=== PATIENT | female | born 1970 | race Caucasian/White ===

== ENCOUNTER → 2018-02-24 14:33 | Emergency (ER) | payer BC ==
[~2018-02-24 14:33] MED LIST: HYDROmorphone INJ* 2 MG/ML CARPUJECT SYRINGE IV SLOW PU ONE; Iohexol 300* (CONTRAST) 10 ML SDV IV ONE; NS 0.9% 1000 ML* 1,000 ML IV ONE; Ondansetron ODT TAB* 4 MG ONE; PROCHLORPERAZINE INJ 5 MG/ML 2 ML VIAL IV PRN; traMADol TAB* 50 MG PO ONE
[2018-02-24 16:38] LABS: ABS Basophils 0 10^3/ul (0-0.2); ABS Eosinophils 0.1 10^3/ul (0-0.6); ABS Lymphocytes 1.7 10^3/ul (1.0-4.8); ABS Monocytes 0.4 10^3/ul (0-0.8); ABS Neutrophils 3.1 10^3/ul (1.5-7.7); ABS Nucleated RBC 0 10^3/ul; Eosinophil % 1.3 % (0-6); Hematocrit 39 % (35-47); Hemoglobin 13.6 g/dl (12.0-16.0); Lymphocyte % 32.1 % (25-47); Mean Corpuscular HGB Conc 35 g/dl (31-36); Mean Corpuscular Hemoglobin 32 pg (27-31); Mean Corpuscular Volume 91 fL (80-97); Mean Platelet Volume 8.1 um3 (7.4-10.4); Nucleated Red Blood Cells % 0; Platelet Count 295 10^3/ul (150-450); Red Blood Count 4.27 10^6/ul (4.00-5.40); Red Cell Distribution Width 14 % (10.5-15); White Blood Count 5.3 10^3/ul (3.5-10.8)
[2018-02-24 16:51] LABS: EGFR Non-African American 96.9 (>60)
[2018-02-24 16:59] LABS: Urine Appearance Clear; Urine Blood Negative (Negative); Urine Color Straw; Urine Ketones Negative (Negative); Urine Protein Negative (Negative); Urine Specific Gravity 1.008 (1.010-1.030); Urine Urobilinogen Negative (Negative)
--- NOTE | 2018-02-24 21:27 | RAD ---
CLINICAL HISTORY: Left lower quadrant pain COMPARISON: CT abdomen pelvis October 13, 2010 TECHNIQUE: Contrast enhanced CT examination of the abdomen and pelvis from the lung bases through the initial tuberosities. The patient received 75 mL Omnipaque 300 intravenously prior to imaging.The patient received oral contrast as well prior to imaging. FINDINGS: VISUALIZED LUNG BASES: The visualized lung bases are grossly clear. There is no pleural effusion. ABDOMEN AND PELVIS: In the right lobe of the liver there is a fluid density millimeter focus most compatible with a benign cyst. Smaller subcentimeter hypoattenuating foci are seen in the liver similar in appearance to the previous CT examination. The liver is otherwise homogenous in attenuation and the surface is smooth. The spleen, pancreas and adrenal glands are grossly normal in appearance. The gallbladder is normal. The kidneys are normal in appearance without focal mass, calcification or signs of hydronephrosis. There are contrast has progressed only as far as the proximal small bowel which limits evaluation of the more distal small bowel and colon. The small bowel is not dilated. The normal appendix is identified in the right lower quadrant measuring 5 mm in diameter (coronal image 35 and axial image 59). There are no diverticula or obvious signs of inflammatory change of the colon but evaluation is limited oral contrast. There is no gross retroperitoneal or mesenteric lymphadenopathy. The retroverted uterus is mildly heterogeneous in attenuation. At the right adnexa there is a 2.1 cm fluid density structure that could represent a dominant follicle in a woman of reproductive age. There is trace free fluid in the cul-de-sac. The abdominal aorta and iliac arteries are normal in course and diameter. Degenerative changes include multilevel loss of intervertebral disc height involving the lower thoracic and lumbar spine.There are no sinister bone lesions. IMPRESSION: 1. No definite focal inflammatory change of the gastrointestinal tract no evaluation is limited by the fact that oral contrast has progressed only as far as the proximal small bowel. 2. Heterogeneous uterus, trace free fluid in the cul-de-sac and possible 2.1 cm low-attenuation focus at the expected location of the right ovary. If clinically warranted superior characterization of the reproductive organs can be made with pelvic ultrasound.
--- NOTE | 2018-02-24 21:56 | ED ---
Alexi Brannon Rebecca, scribed for Isiah Ureña MD on 02/24/18 at 1657 . Abdominal Pain/Female - HPI Summary HPI Summary: Pt is a 47 y/o F who presents to ED c/o abdominal pain since Tuesday (3 days ago ). Pain is located diffusely throughout the abdomen with constant tightness and intermittent sharp sensations. States that she is unable to find a pattern to when her pain worsens. On triage, pain is mild ranked 2/10, though waxes and wanes in intensity, much worse this morning. She has tried treating symptoms with Tums, Tylenol and GERD medications without relief. Sx aggravated by palpation, alleviated by nothing. Additionally c/o nausea and lightheadedness. Additionally notes what she suspects may be an insect bite to her left thumb. Reports that pain has been severe enough to cause her difficulty sleeping. - History of Current Complaint Chief Complaint: EDAbdPain Stated Complaint: ABD PAIN Time Seen by Provider: 02/24/18 15:46 Hx Obtained From: Patient Onset/Duration: Still Present Timing: Constant Severity Currently: Mild Pain Intensity: 2 Pain Scale Used: 0-10 Numeric Location: Diffuse Aggravating Factor(s): Other: - Palpation Alleviating Factor(s): Nothing Associated Signs and Symptoms: Positive: Nausea, Other: - Lightheadedness Allergies/Adverse Reactions: Allergies Allergy/AdvReac Type Severity Reaction Status Date / Time No Known Allergies Allergy Verified 02/24/18 14:39 PMH/Surg Hx/FS Hx/Imm Hx Endocrine/Hematology History: Denies: Hx Diabetes Cardiovascular History: Denies: Hx Coronary Artery Disease, Hx Hypertension Neurological History: Denies: Other Neuro Impairments/Disorders - Cancer History Hx Chemotherapy: No Hx Radiation Therapy: No Infectious Disease History: No Infectious Disease History: Denies: Traveled Outside the [place] in Last 30 Days - Family History Known Family History: Positive: Hypertension - Mother, Other - Dementia (father) , colon CA (grandmother) - Social History Alcohol Use: Occasionally Substance Use Type: Reports: None Smoking Status (MU): Never Smoked Tobacco Review of Systems Positive: Abdominal Pain, Nausea Neurological: Other - Lightheadedness All Other Systems Reviewed And Are Negative: Yes Physical Exam - Summary Physical Exam Summary: Appearance: The patient is well-nourished in no acute distress and in no acute pain. Skin: The skin is warm and dry and skin color reflects adequate perfusion. HEENT: The head is normocephalic and atraumatic. The pupils are equal and reactive. The conjunctivae are clear and without drainage. Nares are patent and without drainage. Mouth reveals moist mucous membranes and the throat is without erythema and exudate. The external ears are intact. The ear canals are patent and without drainage. The tympanic membranes are intact. Neck: The neck is supple with full range of motion and non-tender. There are no carotid bruits. There is no neck vein distension. Respiratory: Chest is non-tender. Lungs are clear to auscultation and breath sounds are symmetrical and equal. Cardiovascular: Heart is regular rate and rhythm. There is no murmur or rub auscultated. There is no peripheral edema and pulses are symmetrical and equal. Abdomen: The abdomen is soft. Left periumbilical tenderness and LLQ tenderness. There are normal bowel sounds heard in all four quadrants and there is no organomegaly palpated. Musculoskeletal: There is no back tenderness noted. Extremities are non-tender with full range of motion. There is good capillary refill. There is no peripheral edema or calf tenderness elicited. Neurological: Patient is alert and oriented to person, place and time. The patient has symmetrical motor strength in all four extremities. Cranial nerves are grossly intact. Deep tendon reflexes are symmetrical and equal in all four extremities. Psychiatric: The patient has an appropriate affect and does not exhibit any anxiety or depression. Triage Information Reviewed: Yes Vital Signs On Initial Exam: Initial Vitals Temp Pulse Resp BP Pulse Ox 97.7 F 87 14 144/95 99 02/24/18 14:37 02/24/18 14:37 02/24/18 14:37 02/24/18 14:37 02/24/18 14:37 Vital Signs Reviewed: Yes Diagnostics - Vital Signs Vital Signs Temp Pulse Resp BP Pulse Ox 02/24/18 14:37 97.7 F 87 14 144/95 99 - Laboratory Lab Results: Lab Results 02/24/18 02/24/18 02/24/18 Range/Units 16:13 16:13 16:13 WBC 5.3 (3.5-10.8) 10^3/ul RBC 4.27 (4.00-5.40) 10^6/ul Hgb 13.6 (12.0-16.0) g/dl Hct 39 (35-47) % MCV 91 (80-97) fL MCH 32 H (27-31) pg MCHC 35 (31-36) g/dl RDW 14 (10.5-15) % Plt Count 295 (150-450) 10^3/ul MPV 8.1 (7.4-10.4) um3 Neut % (Auto) 58.4 (38-83) % Lymph % (Auto) 32.1 (25-47) % [place] % (Auto) 7.7 H (0-7) % Eos % (Auto) 1.3 (0-6) % Baso % (Auto) 0.5 (0-2) % Absolute Neuts (auto) 3.1 (1.5-7.7) 10^3/ul Absolute Lymphs (auto) 1.7 (1.0-4.8) 10^3/ul Absolute Monos (auto) 0.4 (0-0.8) 10^3/ul Absolute Eos (auto) 0.1 (0-0.6) 10^3/ul Absolute Basos (auto) 0 (0-0.2) 10^3/ul Absolute Nucleated RBC 0 10^3/ul Nucleated RBC % 0 Sodium 139 (135-145) mmol/L Potassium 3.3 L (3.5-5.0) mmol/L Chloride 104 (101-111) mmol/L Carbon Dioxide 26 (22-32) mmol/L Anion Gap 9 (2-11) mmol/L BUN 10 (6-24) mg/dL Creatinine 0.65 (0.51-0.95) mg/dL Est GFR ( Amer) 117.2 (>60) Est GFR (Non-Af Amer) 96.9 (>60) BUN/Creatinine Ratio 15.4 (8-20) Glucose 90 (70-100) mg/dL Lactic Acid 0.6 (0.5-2.0) mmol/L Calcium 9.2 (8.6-10.3) mg/dL Total Bilirubin 0.40 (0.2-1.0) mg/dL AST 15 (13-39) U/L ALT 15 (7-52) U/L Alkaline Phosphatase 40 (34-104) U/L C-Reactive Protein 18.54 H (<8.01) mg/L Total Protein 7.1 (6.4-8.9) g/dL Albumin 4.5 (3.2-5.2) g/dL Globulin 2.6 (2-4) g/dL Albumin/Globulin Ratio 1.7 (1-3) Lipase 49 (11.0-82.0) U/L Result Diagrams: 02/24/18 16:13 02/24/18 16:13 Lab Statement: Any lab studies that have been ordered have been reviewed, and results considered in the medical decision making process. - CT CT Abd/Pel CT Interpretation Completed By: Radiologist - 1. No definite focal inflammatory change of the gastrointestinal tract no evaluation is limited by the fact that oral contrast has progressed only as far as the proximal small bowel. 2. Heterogeneous uterus, trace free fluid in the cul-de-sac and possible 2.1 cm low-attenuation focus at the expected location of the right ovary. If clinically warranted superior characterization of the reproductive organs can be made with pelvic ultrasound. ED physician reviewed this report. Re-Evaluation - Re-Evaluation First Eval Re-Evaluation Time: 21:37 Comment: Discussed results, pt feels alright. Abdominal Pain Fem Course/Dx - Course Course Of Treatment: Ms. Moody presented to the emergency department with a diffuse abdominal pain which was primarily located in the left lower quadrant. She saw Dr. Rodriguez who was concerned for diverticulitis. Here her laboratory studies were within normal limits aside from a very slightly elevated CRP of 19. Contrasted CT scan of the abdomen revealed no acute pathology aside from a possible right ovarian follicular cyst. We will discharge her with symptomatic treatment and follow-up as necessary. - Diagnoses Provider Diagnoses: Abdominal pain Discharge - Sign-Out/Discharge Documenting (check all that apply): Discharge/Admit/Transfer - Discharge - Discharge Plan Condition: Stable Disposition: HOME Prescriptions: traMADol TAB* [Ultram*] 50 mg PO Q6HR PRN #20 tab MDD 4 PRN Reason: Pain traMADol TAB* [Ultram*] 50 mg PO Q6HR PRN #20 tab MDD 4 PRN Reason: Pain Patient Education Materials: Acute Abdominal Pain (ED) Referrals: Otilia Rodriguez MD [Primary Care Provider] - 3 Days Additional Instructions: RETURN TO ED FOR ANY NEW OR WORSENING SYMPTOMS. - Billing Disposition and Condition Condition: STABLE Disposition: Home The documentation as recorded by the Alexi meeks Rebecca accurately reflects the service I personally performed and the decisions made by me, Isiah Ureña MD.
[2018-02-24 21:58] VITALS: BP 116/54
== END | disposition home or self-care (01) ==
LOC: ED 14:33
DX: R10.9 Unspecified abdominal pain (principal); R11.0 Nausea; R42 Dizziness and giddiness
CPT/HCPCS: 36415; 74177; 80053; 81003; 83605; 83690; 85025; 86140; 99282; A9270-GY; J1170; Q9967

== ENCOUNTER 2018-02-26 07:47 | Emergency (ER) | payer BC ==
[2018-02-26] MEDS ORDERED: Tetan/Diph/Pertus SYR(Tdap)* 0.5 ML SYR(BOOSTRIX) use SYR IM ONE (08:07)
[2018-02-26] MEDS ORDERED: Rabies Vaccine (RabAvert)* 2.5 UNITS VIAL IM ONE (08:09)
[2018-02-26] MEDS ORDERED: Rabies Immune Globulin 10 ML* 150 UNIT/ML VIAL IM ONE (08:09)
--- NOTE | 2018-02-26 08:28 | ED ---
Bite Injury/Animal - HPI Summary HPI Summary: Patient is a 47-year-old female who presents emergency department for possible bat bite to her left hand 3 days. Patient states she noticed 2 small puncture wounds on her right hand on Tuesday and is concerned it may be a bat bite. Patient states she has animals at home and a sliding glass door and the possibility of a bat in her house is plausible. Pt. states she takes a sleeping pill at night and states she most likely would have not woken up if something bite her. Symptoms are moderate in severity. No current modifying factors. Unaware of last tetanus immunization. - History of Current Complaint Chief Complaint: EDAnimalBite Stated Complaint: ANIMAL BITE Time Seen by Provider: 02/26/18 07:51 Hx Obtained From: Patient Pain Intensity: 3 - Allergies/Home Medications Allergies/Adverse Reactions: Allergies Allergy/AdvReac Type Severity Reaction Status Date / Time No Known Allergies Allergy Verified 02/26/18 07:50 Home Medications: Home Medications NK [No Home Medications Reported] 02/26/18 [History Confirmed 02/26/18] PMH/Surg Hx/FS Hx/Imm Hx Previously Healthy: Yes Endocrine/Hematology History: Denies: Hx Diabetes Cardiovascular History: Denies: Hx Coronary Artery Disease, Hx Hypertension Neurological History: Denies: Other Neuro Impairments/Disorders - Cancer History Hx Chemotherapy: No Hx Radiation Therapy: No Infectious Disease History: No Infectious Disease History: Denies: Traveled Outside the [place] in Last 30 Days - Family History Known Family History: Positive: Hypertension - Mother, Other - Dementia (father) , colon CA (grandmother) - Social History Occupation: Employed Full-time Lives: With Family Alcohol Use: Occasionally Substance Use Type: Reports: None Smoking Status (MU): Never Smoked Tobacco Review of Systems Constitutional: Negative Positive: Other - Puncture wounds to left hand Positive: Bruising All Other Systems Reviewed And Are Negative: Yes Physical Exam Triage Information Reviewed: Yes Vital Signs On Initial Exam: Initial Vitals Temp Pulse Resp BP Pulse Ox 97.2 F 87 14 149/93 97 02/26/18 07:48 02/26/18 07:48 02/26/18 07:48 02/26/18 07:48 02/26/18 07:48 Vital Signs Reviewed: Yes Appearance: Positive: Well-Appearing - Pt. sitting on bed in NAD. Anxious appearing. Skin: Positive: Warm, Dry Head/Face: Positive: Normal Head/Face Inspection Neck: Positive: Supple Musculoskeletal: Positive: Other - Two small puncture wounds noted to the left hand just proximal of the 1st MCP joint. Small amount of surrounding bruising. No drainage, redness, or edema. Full ROM of digits and wrist. Tender on palpation. Neurological: Positive: Normal, CN Intact II-III Psychiatric: Positive: Affect/Mood Appropriate Diagnostics - Vital Signs Vital Signs Temp Pulse Resp BP Pulse Ox 02/26/18 07:48 97.2 F 87 14 149/93 97 - Laboratory Lab Statement: Any lab studies that have been ordered have been reviewed, and results considered in the medical decision making process. Bite Injury Course/Dx - Course Course Of Treatment: Pt. presenting to the ER for possible bat bite and rabies exposure. Pt. sustained two small puncture bites to her left hand 3 days ago. She does not recall any injury. Pt. is concerned puncture wounds could be a bat bite. Pt. states there is a high possibility there could have been a bat in her house and that it bit her in her sleep. Given pt.'s concern and small likely bite wound on exam will initiate rabies prophylaxis. Tetanus updated. Pt. will f.u with health department on days 3, 7 and 14 for remainder of rabies vaccinations. Patient inquired about other family members and friends that have been staying in her house. Advised they're more than welcome to come to the ER for evaluation and prophylactic treatment if indicated. She states she is going to call the health department tomorrow for further recommendations. - Diagnoses Differential Diagnosis/HQI/PQRI: Positive: Puncture, Rabies Exposure, Superficial Infection, Deep Space Infection Provider Diagnosis: Puncture wound, Bat bite wound, Need for prophylactic vaccination against rabies Discharge - Sign-Out/Discharge Documenting (check all that apply): Discharge/Admit/Transfer - Discharge Plan Condition: Good Disposition: HOME Patient Education Materials: Animal Bite (ED), Rabies (ED) Referrals: Otilia Rodriguez MD [Primary Care Provider] - Additional Instructions: Schedule a follow up appointment with your PCP Follow up with the Health Department for the remaining rabies vaccination series on dates: 03/01, 03/05, 03/12/18 Keep wound clean and dry Return to ER for redness, swelling, or drainage from wound or any new symptoms - Billing Disposition and Condition Condition: GOOD Disposition: Home
[2018-02-26 08:59] VITALS: BP 149/90
== END 2018-02-26 08:58 | disposition home or self-care (01) ==
LOC: ED 07:47
DX: S61.452A Open bite of left hand, initial encounter (principal); W64.XXXA Exposure to other animate mechanical forces, initial encounter; Y92.9 Unspecified place or not applicable; Z23 Encounter for immunization
CPT/HCPCS: 90375; 90471; 90675; 90715; 96372; 99282

== ENCOUNTER 2018-04-26 12:40 | Emergency (ER) | payer BC ==
[2018-04-26] MEDS ORDERED: Fluorescein Sod TOPICAL 0.6* 0.6 MG TEST OPHTHALMIC ONE (13:20)
[2018-04-26] MEDS ORDERED: Tetracaine 0.5% OPTH.SOL 4 ML* 1 DROP BTL RIGHT EYE SCH (13:30)
[2018-04-26] MEDS ORDERED: Tetracaine 0.5% OPTH.SOL 4 ML* 1 DROP BTL ONE (13:36)
[2018-04-26 15:00] VITALS: BP 128/77
--- NOTE | 2018-04-26 15:33 | ED ---
Throat Pain/Nasal Congestion - HPI Summary HPI Summary: Patient is a 47-year-old female presenting to the ED after traumatic eye injury. She states while mowing she felt a pine-needle up to the eye and immediately felt bleeding. Endorses a mild amount of pain of 2/10, constant and throbbing. There is a slight amount of drainage from the eye which is bloody and clear intermittently. She states she is able to see well. She endorses feeling something is in the eye and she states this feels like "Vaseline" in the eye. She wears glasses and does not wear contacts. She denies any visual changes. - History of Current Complaint Chief Complaint: EDEyeProblem Time Seen by Provider: 04/26/18 12:48 Hx Obtained From: Patient Onset/Duration: Sudden Onset Severity: Moderate - Epiglottits Risk Factors Epiglottis Risk Factors: Negative - Allergies/Home Medications Allergies/Adverse Reactions: Allergies Allergy/AdvReac Type Severity Reaction Status Date / Time No Known Allergies Allergy Verified 04/26/18 12:44 PMH/Surg Hx/FS Hx/Imm Hx Previously Healthy: Yes Endocrine/Hematology History: Denies: Hx Diabetes Cardiovascular History: Denies: Hx Coronary Artery Disease, Hx Hypertension Neurological History: Denies: Other Neuro Impairments/Disorders - Cancer History Hx Chemotherapy: No Hx Radiation Therapy: No - Immunization History Hx Pertussis Vaccination: No Immunizations Up to Date: Yes Infectious Disease History: No Infectious Disease History: Denies: Traveled Outside the [place] in Last 30 Days - Family History Known Family History: Positive: Hypertension - Mother, Other - Dementia (father) , colon CA (grandmother) - Social History Occupation: Employed Full-time Lives: With Family Alcohol Use: Daily Alcohol Amount: "a couple strong ones" Hx Substance Use: No Substance Use Type: Reports: None Hx Tobacco Use: No Smoking Status (MU): Never Smoked Tobacco Review of Systems Constitutional: Negative Negative: Fever, Chills, Fatigue, Skin Diaphoresis Positive: Other - sub-conjunctival hemorrhage. Negative: Photophobia, Blurred Vision, Diplopia, Drainage, Erythema Negative: Epistaxis, Dental Pain Negative: Palpitations, Chest Pain Negative: Shortness Of Breath, Cough Negative: Arthralgia, Myalgia Skin: Negative Neurological: Negative All Other Systems Reviewed And Are Negative: Yes Physical Exam Triage Information Reviewed: Yes Vital Signs On Initial Exam: Initial Vitals Temp Pulse Resp BP Pulse Ox 98.4 F 73 16 129/85 99 04/26/18 12:41 04/26/18 12:41 04/26/18 12:41 04/26/18 12:41 04/26/18 12:41 Vital Signs Reviewed: Yes Appearance: Positive: Well-Appearing, Well-Nourished Skin: Positive: Warm, Skin Color Reflects Adequate Perfusion Head/Face: Positive: Normal Head/Face Inspection Eyes: Positive: Conjunctiva Inflammed, Discharge - Bloody discharge Neck: Positive: Supple, No Lymphadenopathy Respiratory/Lung Sounds: Positive: Clear to Auscultation, Breath Sounds Present Cardiovascular: Positive: RRR, Pulses are Symmetrical in both Upper and Lower Extremities Musculoskeletal: Positive: Normal, Strength/ROM Intact Neurological: Positive: Speech Normal Psychiatric: Positive: Normal, Affect/Mood Appropriate AVPU Assessment: Alert Diagnostics - Vital Signs Vital Signs Temp Pulse Resp BP Pulse Ox 04/26/18 14:57 98.8 F 73 17 128/77 100 04/26/18 12:41 98.4 F 73 16 129/85 99 - Laboratory Lab Statement: Any lab studies that have been ordered have been reviewed, and results considered in the medical decision making process. EENT Course/Dx - Course Course Of Treatment: On arrival, there appears to be a subcutaneous conjunctival hemorrhage throughout the eye with swelling which appears to be clotted bleeding. Observed the eye well with tetracaine and fluorescein uptake with Wood's lamp. No evidence of a corneal abrasion is visualized, however I am unable to assess if there is a foreign body throughout the conjunctiva, however there does not appear to be any evidence of gross foreign body. Dr. Clement called who stated an antibiotic drop until follow-up in the office tomorrow. She has an appointment at 1:[address] Clement. - Diagnoses Provider Diagnoses: Subconjunctival hemorrhage, Eye trauma Discharge - Sign-Out/Discharge Documenting (check all that apply): Patient Departure - Discharge Plan Condition: Stable Disposition: HOME Prescriptions: Polymyx/Trimethoprim OPTH* [Polytrim OPHTH*] 1 drop BOTH EYES SEE INSTRUCTIONS # 1 btl traMADol TAB* [Ultram*] 50 mg PO Q8H PRN #6 tab MDD 3 PRN Reason: Pain Patient Education Materials: Subconjunctival Hemorrhage (ED) Referrals: Damien Clement MD [Medical Doctor] - Otilia Rodriguez MD [Primary Care Provider] - Additional Instructions: Follow-up with Dr. Clement tomorrow at 1:15 PM If symptoms worsen, return to the ED Take medications as prescribed - Billing Disposition and Condition Condition: STABLE Disposition: Home
== END 2018-04-26 14:57 | disposition home or self-care (01) ==
LOC: ED 12:40
DX: S05.11XA Contusion of eyeball and orbital tissues, right eye, initial encounter (principal); H57.8 Other specified disorders of eye and adnexa; W22.8XXA Striking against or struck by other objects, initial encounter; Y93.H2 Activity, gardening and landscaping; Y92.9 Unspecified place or not applicable
CPT/HCPCS: 99282; A9270-GY